=== PATIENT | male | born 1950 | race Caucasian/White ===

== ENCOUNTER → 2019-05-08 | Outpatient (CLI) | payer MEDICARE ==
--- NOTE | 2019-05-08 13:26 | REP ---
Chest x-ray: Three views. History: Enlarged lymph node. No comparison study. Findings: The lungs are well inflated and clear. The pleural angles are sharp. Cardiomediastinal silhouette is unremarkable. There is no evidence of hilar or mediastinal mass or adenopathy on plain chest x-ray. No significant bony abnormality is seen. Impression: No active disease.
== END ==
LOC: EDSEX 11:23 → M CLY 11:23
PROVIDERS: ATTEND Nurse Practitioner Family
DX: R59.9 Enlarged lymph nodes, unspecified (principal)

== ENCOUNTER → 2019-05-08 | Outpatient (REF) | payer MEDICARE ==
[2019-05-08 16:32] LABS: BASO % 0.4 % (0.0-1.0); EOS % 0.5 % (0.0-3.0); HEMATOCRIT 46.7 % (42.0-52.0); HEMOGLOBIN 15.1 g/dl (13.5-17.5); LYMPH # 1.4 10^3/uL (1.5-4.5); LYMPH % 19.1 % (24.0-44.0); MEAN CORPUSCULAR HEMOGLOBIN 29.8 pg (27.0-33.0); MEAN CORPUSCULAR HGB CONC 32.3 g/dl (32.0-36.5); MEAN CORPUSCULAR VOLUME 92.1 fl (80.0-96.0); MONO # 0.6 10^3/uL (0.0-0.8); MONO % 7.8 % (0.0-5.0); NEUTROPHILS # 5.4 10^3/uL (1.8-7.7); NEUTROPHILS % 71.9 % (36.0-66.0); PLATELET COUNT, AUTOMATED 275 10^3/uL (150-450); RED BLOOD COUNT 5.07 10^6/uL (4.30-6.10); WHITE BLOOD COUNT 7.5 10^3/uL (4.0-10.0)
[2019-05-08 16:39] LABS: ALBUMIN 4.3 GM/DL (3.2-5.2); ALT/SGPT 30 U/L (12-78); BLOOD UREA NITROGEN 16 MG/DL (7-18); CALCIUM LEVEL 9.4 MG/DL (8.8-10.2); CARBON DIOXIDE LEVEL 27 MEQ/L (21-32); CHLORIDE LEVEL 102 MEQ/L (98-107); CREATININE FOR GFR 0.95 MG/DL (0.70-1.30); GLOMERULAR FILTRATION RATE > 60.0 (>42); GLUCOSE, FASTING 92 MG/DL (70-100); POTASSIUM SERUM 4.2 MEQ/L (3.5-5.1); SODIUM LEVEL 140 MEQ/L (136-145); TOTAL PROTEIN 7.4 GM/DL (6.4-8.2)
[2019-05-08 17:27] LABS: HIV 1&2 SCREEN CENTAUR NEGATIVE (NEGATIVE)
[2019-05-08 19:09] LABS: MONO SCRN NEGATIVE (NEGATIVE)
[2019-05-11 11:18] LABS: HEPATITIS B SURFACE ANTIGEN NEGATIVE (NEGATIVE)
[2019-05-11 11:46] LABS: HEPATITIS C VIRUS ABY INDEX 0.1 INDEX (<0.8)
[2019-05-11 11:47] LABS: HEPATITIS B CORE ANTIBODY IGM NEGATIVE (NEGATIVE)
[2019-05-11 11:48] LABS: HEPATITIS A ANTIBODY IGM NEGATIVE (NEGATIVE)
== END ==
LOC: EDSEX → M SFHCCLAY 11:14
PROVIDERS: ATTEND Nurse Practitioner Family
DX: R59.9 Enlarged lymph nodes, unspecified (principal)

== ENCOUNTER → 2019-05-15 | Outpatient (CLI) | payer MEDICARE ==
[~2019-05-15] MED LIST: ISOVUE-370 76% 100ML VIAL (Q9967) As Ordered ONE
--- NOTE | 2019-05-15 16:51 | REP ---
Soft-tissue neck CT with IV contrast: History: Enlarged lymph node. CT contrast dose: 75 mL of intravenous Isovue [address] findings: Visualized paranasal sinuses are clear. The visualized intracranial structures are unremarkable. Parotid and submandibular glands are unremarkable and symmetric. Thyroid lobes are homogeneous and normal in size. There is no evidence of infrahyoid or suprahyoid adenopathy or mass. No cyst seen. No vascular abnormality is observed. The epiglottis and aryepiglottic folds are intact. No airway lesion is appreciated. The lung apices are clear. No bony destructive lesion is appreciated. There are mild degenerative spondylosis changes. impression: No neck mass or adenopathy seen. Electronically Signed by Олег Wesley MD 05/15/2019 06:40 P
== END ==
LOC: M RAD 15:18
PROVIDERS: ATTEND Nurse Practitioner Family
DX: R59.9 Enlarged lymph nodes, unspecified (principal)
CPT/HCPCS: 70491; Q9967